=== PATIENT | male | born 2000 | race Caucasian/White ===

== ENCOUNTER 2018-12-27 09:29 | Emergency (ER) | payer BC ==
[~2018-12-27] VITALS: Ht 185.4 cm; Wt 90.9 kg
[~2018-12-27 09:29] MED LIST: PHENERGAN 25 TA25 MG PO; PRILOSEC 20MG20 MG PO
[2018-12-27 09:48] VITALS: BP 133/82; PULSE 75; TEMP 97.2
[2018-12-27] MEDS ORDERED: ATARAX 25MG25 MG/TAB PO (10:07)
[2018-12-27] MEDS ORDERED: PRILOSEC 20MG20 MG PO (11:08)
[2018-12-27] MEDS ORDERED: PHENERGAN25 MG RC (11:08)
== END 2018-12-27 12:30 ==
LOC: COL.ER 09:29
DX: F12.188 Cannabis abuse with other cannabis-induced disorder (principal); R11.2 Nausea with vomiting, unspecified; F32.9 Major depressive disorder, single episode, unspecified; Z88.0 Allergy status to penicillin; Z88.4 Allergy status to anesthetic agent
CPT/HCPCS: J2060; J2405; J7030

== ENCOUNTER 2019-03-05 10:56 | Emergency (ER) | payer BC ==
[~2019-03-05] VITALS: Ht 185.4 cm; Wt 90.0 kg
[~2019-03-05 10:56] MED LIST changes: +ATARAX 25MG25 MG/TAB PO; +PHENERGAN25 MG RC
[2019-03-05 10:59] VITALS: TEMP 98.2
[2019-03-05] MEDS ORDERED: ZOFRAN 4MG T4 MG/TAB PO (11:11)
[2019-03-05 12:41] LABS: ALANINE AMINOTRANSFERASE 22 U/L (21-72); ALBUMIN 4.6 gm/dL (3.5-5.0); ALKALINE PHOSPHATASE 99 U/L (50-136); ANION GAP 11 mmol/L (7-16); AST,SGOT 23 U/L (15-37); BILIRUBIN,TOTAL 0.4 mg/dL (0.0-1.0); BLOOD UREA NITROGEN 10 mg/dL (9-20); C-REACTIVE PROTEIN 0.7 mg/dL (0.0-0.9); CALCIUM 9.5 mg/dL (8.4-10.2); CARBON DIOXIDE 23 mmol/L (22-30); CHLORIDE 107 mmol/L (98-107); CREATININE, serum 0.93 (0.66-1.25); GLUCOSE 121 mg/dL (74-106); LIPASE 69 U/L (23-300); POTASSIUM 3.8 mmol/L (3.4-5.0); SODIUM 142 mmol/L (137-145); TOTAL PROTEIN 7.8 gm/dL (6.4-8.2)
[2019-03-05 12:42] LABS: ACETAMINOPHEN < 10 ug/mL (10-30); ALCOHOL(ethanol),MEDICAL < 10 mg/dL; SALICYLATE < 1.0 mg/dL
[2019-03-05 12:52] LABS: BASO % 0.3 % (0.0-2.0); EOS # 0.1 (0.0-0.7); EOS % 1.2 % (0-4.0); GRAN # 9.9 (1.4-6.5); HEMATOCRIT 40.9 % (36.0-47.0); HEMOGLOBIN 14.6 g/dl (12.5-16.1); LYMPH # 0.9 (1.2-3.4); LYMPH % 7.6 % (20.0-51.0); MEAN CELL VOLUME 84 fl (80.0-95.0); MEAN CORPUSCULAR HEMOGLOBIN 30 pg (26.0-32.0); MEAN CORPUSCULAR HGB CONC 36 g/dl (33.0-37.0); MONO # 0.4 (0.1-0.6); MONO % 3.4 % (1.7-9.3); PLATELET COUNT 348 K/mm3 (130-400); RED BLOOD COUNT 4.89 M/mm3 (4.20-5.60); REDCELL DISTRIBUTION WIDTH-CV 12.1 % (11.5-14.5)
[2019-03-05 14:07] LABS: COLLECTION METHOD CLEAN CATCH
[2019-03-05 14:13] LABS: MUCOUS Present /lpf; PH 9 (5-8); SQUAMOUS EPITHELIAL None Seen /hpf; URINE APPEARANCE Clear; URINE BACTERIA None Seen /hpf; URINE BILIRUBIN Negative (NEGATIVE); URINE BLOOD Negative (NEGATIVE); URINE COLOR Yellow; URINE GLUCOSE Negative (NEGATIVE); URINE KETONE 1+ (NEGATIVE); URINE LEUKOCYTE ESTERASE Negative (NEGATIVE); URINE NITRATE Negative (NEGATIVE); URINE PROTEIN(semi-quant) Negative (NEGATIVE); URINE RBC 0-2 /hpf; URINE UROBILINOGEN Negative (NEGATIVE); URINE WBC 0-2 /hpf
[2019-03-05 14:29] LABS: TRICYCLIC ANTIDEPRESS URINE NEGATIVE
[2019-03-05 14:56] VITALS: BP 109/69; PULSE 82
== END 2019-03-05 14:56 | disposition home or self-care (01) ==
LOC: COL.ER 10:56
PROVIDERS: Emergency Medicine
DX: R11.2 Nausea with vomiting, unspecified (principal)
CPT/HCPCS: C9113; J2060; J2550; J7030; Q9967

== ENCOUNTER → 2019-04-05 | Outpatient (CLI) | payer BC ==
[~2019-04-05] MED LIST changes: +ZOFRAN 4MG T4 MG/TAB PO
== END ==
LOC: COL.LAB 12:57
DX: R11.2 Nausea with vomiting, unspecified (principal)

== ENCOUNTER 2019-04-23 12:05 | Emergency (ER) | payer BC ==
[~2019-04-23] VITALS: Ht 185.4 cm; Wt 90.9 kg
[2019-04-23 12:50] VITALS: BP 124/75
[2019-04-23 14:12] LABS: ALBUMIN 4.6 gm/dL (3.5-5.0); BILIRUBIN,TOTAL 0.6 mg/dL (0.0-1.0); C-REACTIVE PROTEIN 0.9 mg/dL (0.0-0.9); CALCIUM 9.6 mg/dL (8.4-10.2); CREATININE, serum 0.8 (0.66-1.25); TOTAL PROTEIN 7.7 gm/dL (6.4-8.2)
[2019-04-23 14:39] LABS: BASO % 0.3 % (0.0-2.0); EOS # 0.1 (0.0-0.7); EOS % 0.4 % (0-4.0); GRAN # 14.3 (1.4-6.5); GRAN % 90.1 % (42.2-75.2); HEMATOCRIT 45.5 % (42.0-52.0); HEMOGLOBIN 16.2 g/dl (13.5-18.0); LYMPH # 0.7 (1.2-3.4); LYMPH % 4.5 % (20.0-51.0); MEAN CELL VOLUME 85 fl (80.0-100.0); MEAN CORPUSCULAR HEMOGLOBIN 30 pg (27.0-31.0); MEAN CORPUSCULAR HGB CONC 36 g/dl (33.0-37.0); MONO # 0.7 (0.1-0.6); MONO % 4.3 % (1.7-9.3); PLATELET COUNT 240 K/mm3 (130-400); RED BLOOD COUNT 5.36 M/mm3 (4.20-5.60); REDCELL DISTRIBUTION WIDTH-CV 12.7 % (11.5-14.5)
[2019-04-23 14:45] LABS: COLLECTION METHOD CLEAN CATCH
[2019-04-23 14:55] LABS: PH 8 (5-8); SQUAMOUS EPITHELIAL None Seen /hpf; URINE APPEARANCE Clear; URINE BACTERIA None Seen /hpf; URINE BILIRUBIN Negative (NEGATIVE); URINE BLOOD Negative (NEGATIVE); URINE COLOR Yellow; URINE GLUCOSE Negative (NEGATIVE); URINE KETONE 1+ (NEGATIVE); URINE LEUKOCYTE ESTERASE Negative (NEGATIVE); URINE NITRATE Negative (NEGATIVE); URINE PROTEIN(semi-quant) 1+ (NEGATIVE); URINE RBC 0-2 /hpf; URINE UROBILINOGEN Negative (NEGATIVE)
[2019-04-23] MEDS ORDERED: PHENERGAN 25 TA25 MG PO (16:41)
[2019-04-23] MEDS ORDERED: ZOFRAN 4MG T4 MG/TAB PO (16:41)
[2019-04-23 16:53] VITALS: PULSE 103; TEMP 97.5
== END 2019-04-23 16:53 | disposition home or self-care (01) ==
LOC: COL.ER 12:05
PROVIDERS: Emergency Medicine
DX: R11.2 Nausea with vomiting, unspecified (principal)
CPT/HCPCS: C9113; J2060; J2405; J2550; J7030

== ENCOUNTER 2019-04-25 08:48 | Emergency (ER) | payer BC ==
[~2019-04-25] VITALS: Ht 185.4 cm; Wt 90.9 kg
[2019-04-25 08:58] VITALS: TEMP 97.6
[2019-04-25 09:39] LABS: COLLECTION METHOD CLEAN CATCH
[2019-04-25 09:48] LABS: MUCOUS Present /lpf; PH 6 (5-8); SQUAMOUS EPITHELIAL None Seen /hpf; URINE APPEARANCE Clear; URINE BILIRUBIN Negative (NEGATIVE); URINE BLOOD Negative (NEGATIVE); URINE COLOR Yellow; URINE GLUCOSE Negative (NEGATIVE); URINE KETONE Negative (NEGATIVE); URINE LEUKOCYTE ESTERASE Negative (NEGATIVE); URINE NITRATE Negative (NEGATIVE); URINE PROTEIN(semi-quant) Negative (NEGATIVE); URINE RBC 0-2 /hpf; URINE UROBILINOGEN Negative (NEGATIVE)
[2019-04-25 09:51] LABS: BASO % 0.4 % (0.0-2.0); EOS # 0.3 (0.0-0.7); EOS % 3.8 % (0-4.0); GRAN # 5.8 (1.4-6.5); GRAN % 68.9 % (42.2-75.2); HEMATOCRIT 46.6 % (42.0-52.0); HEMOGLOBIN 16.1 g/dl (13.5-18.0); LYMPH # 1.6 (1.2-3.4); LYMPH % 18.8 % (20.0-51.0); MEAN CELL VOLUME 87 fl (80.0-100.0); MEAN CORPUSCULAR HEMOGLOBIN 30 pg (27.0-31.0); MEAN CORPUSCULAR HGB CONC 35 g/dl (33.0-37.0); MONO # 0.6 (0.1-0.6); MONO % 7.5 % (1.7-9.3); PLATELET COUNT 274 K/mm3 (130-400); RED BLOOD COUNT 5.37 M/mm3 (4.20-5.60); REDCELL DISTRIBUTION WIDTH-CV 12.9 % (11.5-14.5)
[2019-04-25 09:52] LABS: URINE BACTERIA None Seen /hpf
[2019-04-25] MEDS ORDERED: PHENERGAN25 MG RC (09:53)
[2019-04-25 09:57] LABS: ALANINE AMINOTRANSFERASE 23 U/L (21-72); ALBUMIN 4.7 gm/dL (3.5-5.0); ALKALINE PHOSPHATASE 91 U/L (50-136); ANION GAP 11 mmol/L (7-16); AST,SGOT 23 U/L (15-37); BILIRUBIN,TOTAL 0.4 mg/dL (0.0-1.0); BLOOD UREA NITROGEN 11 mg/dL (9-20); C-REACTIVE PROTEIN < 0.5 mg/dL (0.0-0.9); CALCIUM 9.8 mg/dL (8.4-10.2); CARBON DIOXIDE 23 mmol/L (22-30); CHLORIDE 108 mmol/L (98-107); CREATININE, serum 0.86 (0.66-1.25); GLUCOSE 101 mg/dL (74-106); LIPASE 52 U/L (23-300); POTASSIUM 3.6 mmol/L (3.4-5.0); SODIUM 141 mmol/L (137-145); TOTAL PROTEIN 7.9 gm/dL (6.4-8.2)
[2019-04-25 11:00] VITALS: BP 133/77; PULSE 70
== END 2019-04-25 11:00 | disposition home or self-care (01) ==
LOC: COL.ER 08:48
PROVIDERS: Emergency Medicine
DX: R11.2 Nausea with vomiting, unspecified (principal); R10.84 Generalized abdominal pain
CPT/HCPCS: C9113; J2060; J2405; J7030

== ENCOUNTER → 2019-05-03 | Outpatient (CLI) | payer BC ==
[~2019-05-03] MED LIST changes: +ZOFRAN ODT4 MG PO
== END ==
LOC: COL.RAD 07:26
DX: B27.90 Infectious mononucleosis, unspecified without complication (principal); B15.9 Hepatitis A without hepatic coma

== ENCOUNTER 2019-05-15 10:26 | Emergency (ER) | payer BC ==
[~2019-05-15] VITALS: Ht 185.4 cm; Wt 90.9 kg
[~2019-05-15 10:26] MED LIST changes: -ZOFRAN ODT4 MG PO
[2019-05-15] MEDS ORDERED: PHENERGAN25 MG RC (11:23)
[2019-05-15 12:22] VITALS: BP 125/76; PULSE 84; TEMP 97.9
== END 2019-05-15 12:22 | disposition home or self-care (01) ==
LOC: COL.ER 10:26
DX: F12.10 Cannabis abuse, uncomplicated (principal); R11.15 Cyclical vomiting syndrome unrelated to migraine
CPT/HCPCS: J2550

== ENCOUNTER 2019-05-20 09:10 | Emergency (ER) | payer BC ==
[~2019-05-20] VITALS: Ht 188 cm; Wt 90.9 kg
[2019-05-20 09:22] VITALS: BP 117/81; TEMP 97.9
[2019-05-20] MEDS ORDERED: PHENERGAN 25 TA25 MG PO (16:25)
[2019-05-20] MEDS ORDERED: ZOFRAN ODT4 MG PO (16:25)
[2019-05-20 16:33] VITALS: PULSE 90
[2019-05-22] MEDS ORDERED: PHENERGAN25 MG RC (12:31)
[2019-05-22] MEDS ORDERED: ZOFRAN ODT4 MG PO (12:31)
== END 2019-05-20 16:33 | disposition home or self-care (01) ==
LOC: COL.ER 09:10
DX: R11.10 Vomiting, unspecified (principal); Z88.0 Allergy status to penicillin; Z88.5 Allergy status to narcotic agent
CPT/HCPCS: C9113; J2060; J2405; J2550; J2765; J7030

== ENCOUNTER 2019-05-23 11:33 | Emergency (ER) | payer BC ==
[~2019-05-23] VITALS: Ht 185.4 cm; Wt 90.9 kg
[~2019-05-23 11:33] MED LIST changes: +ZOFRAN ODT4 MG PO
[2019-05-23 11:36] VITALS: TEMP 96
[2019-05-23 12:33] LABS: BASO % 0.3 % (0.0-2.0); EOS # 0.3 (0.0-0.7); EOS % 2.1 % (0-4.0); GRAN # 10.3 (1.4-6.5); GRAN % 83.4 % (42.2-75.2); HEMATOCRIT 42.6 % (42.0-52.0); HEMOGLOBIN 15.1 g/dl (13.5-18.0); LYMPH # 0.9 (1.2-3.4); LYMPH % 7.6 % (20.0-51.0); MEAN CELL VOLUME 85 fl (80.0-100.0); MEAN CORPUSCULAR HEMOGLOBIN 30 pg (27.0-31.0); MEAN CORPUSCULAR HGB CONC 35 g/dl (33.0-37.0); MEAN PLATELET VOLUME 9.9 fl (7.4-10.4); MONO # 0.8 (0.1-0.6); MONO % 6.2 % (1.7-9.3); PLATELET COUNT 331 K/mm3 (130-400); RED BLOOD COUNT 5.01 M/mm3 (4.20-5.60); REDCELL DISTRIBUTION WIDTH-CV 12.7 % (11.5-14.5)
[2019-05-23 12:35] LABS: ALANINE AMINOTRANSFERASE 22 U/L (21-72); ALBUMIN 4.9 gm/dL (3.5-5.0); ALKALINE PHOSPHATASE 88 U/L (50-136); ANION GAP 13 mmol/L (7-16); AST,SGOT 36 U/L (15-37); BILIRUBIN,TOTAL 0.9 mg/dL (0.0-1.0); BLOOD UREA NITROGEN 6 mg/dL (9-20); CALCIUM 9.8 mg/dL (8.4-10.2); CARBON DIOXIDE 24 mmol/L (22-30); CHLORIDE 105 mmol/L (98-107); CREATININE, serum 0.81 (0.66-1.25); GLUCOSE 113 mg/dL (74-106); LIPASE 46 U/L (23-300); POTASSIUM 3.5 mmol/L (3.4-5.0); SODIUM 142 mmol/L (137-145)
[2019-05-23 12:36] LABS: C-REACTIVE PROTEIN < 0.5 mg/dL (0.0-0.9)
[2019-05-23 13:36] LABS: COLLECTION METHOD CLEAN CATCH
[2019-05-23 13:48] LABS: MUCOUS Present /lpf; PH 5 (5-8); SQUAMOUS EPITHELIAL None Seen /hpf; URINE APPEARANCE Hazy; URINE BACTERIA None Seen /hpf; URINE BILIRUBIN Negative (NEGATIVE); URINE BLOOD Negative (NEGATIVE); URINE COLOR Yellow; URINE GLUCOSE Negative (NEGATIVE); URINE KETONE 2+ (NEGATIVE); URINE LEUKOCYTE ESTERASE Negative (NEGATIVE); URINE NITRATE Negative (NEGATIVE); URINE PROTEIN(semi-quant) Negative (NEGATIVE); URINE RBC 0-2 /hpf
[2019-05-23] MEDS ORDERED: ZOFRAN ODT4 MG PO (15:23)
[2019-05-23] MEDS ORDERED: PHENERGAN 25 TA25 MG PO (15:23)
[2019-05-23 15:46] VITALS: BP 125/81; PULSE 98
== END 2019-05-23 15:50 | disposition home or self-care (01) ==
LOC: COL.ER 11:33
PROVIDERS: Emergency Medicine
DX: R11.10 Vomiting, unspecified (principal)
CPT/HCPCS: C9113; J1200; J2060; J3230; J7030

== ENCOUNTER 2019-05-24 09:07 | Emergency (ER) | payer BC ==
[~2019-05-24] VITALS: Ht 188 cm; Wt 90.9 kg
[2019-05-24 09:36] VITALS: BP 133/67; TEMP 96.8
[2019-05-24 10:09] LABS: BASO # 0.1 (0.0-0.2); BASO % 0.3 % (0.0-2.0); EOS # 0.4 (0.0-0.7); EOS % 2.5 % (0-4.0); GRAN % 80.3 % (42.2-75.2); HEMATOCRIT 40.6 % (42.0-52.0); HEMOGLOBIN 14.5 g/dl (13.5-18.0); LYMPH # 1.5 (1.2-3.4); LYMPH % 9.8 % (20.0-51.0); MEAN CELL VOLUME 85 fl (80.0-100.0); MEAN CORPUSCULAR HEMOGLOBIN 30 pg (27.0-31.0); MEAN CORPUSCULAR HGB CONC 36 g/dl (33.0-37.0); MEAN PLATELET VOLUME 9.8 fl (7.4-10.4); MONO % 6.6 % (1.7-9.3); PLATELET COUNT 319 K/mm3 (130-400); REDCELL DISTRIBUTION WIDTH-CV 12.6 % (11.5-14.5)
[2019-05-24 10:20] LABS: ALBUMIN 4.4 gm/dL (3.5-5.0); BILIRUBIN,TOTAL 0.5 mg/dL (0.0-1.0); CALCIUM 9.5 mg/dL (8.4-10.2); CREATININE, serum 0.75 (0.66-1.25); POTASSIUM 3.4 mmol/L (3.4-5.0); TOTAL PROTEIN 7.2 gm/dL (6.4-8.2)
[2019-05-24 11:23] VITALS: PULSE 81
== END 2019-05-24 11:23 | disposition home or self-care (01) ==
LOC: COL.ER 09:07
PROVIDERS: Emergency Medicine
DX: R11.10 Vomiting, unspecified (principal)
CPT/HCPCS: A9541; C9113; J0780; J1200; J2060; J7030

== ENCOUNTER 2019-05-29 16:43 | Emergency (ER) | payer BC ==
[~2019-05-29] VITALS: Ht 188 cm; Wt 90.9 kg
[2019-05-29 16:51] VITALS: BP 137/86; PULSE 64; TEMP 97.5
== END 2019-05-29 18:10 | disposition home or self-care (01) ==
LOC: COL.ER 16:43
DX: R11.15 Cyclical vomiting syndrome unrelated to migraine (principal); F12.10 Cannabis abuse, uncomplicated
CPT/HCPCS: J1200; J1790